=== PATIENT | female | born 1995 | race Caucasian/White ===

== ENCOUNTER 2017-10-07 08:40 | Inpatient (IN) ==
[2017-10-07] MEDS ORDERED: ACETAMINOPHEN 500 MG TABLET PO PRN ×2 (09:08→20:52)
[2017-10-07] MEDS ORDERED: CARBOPROST 250 MCG/ML INJECTION IM PRN (09:08)
[2017-10-07] MEDS ORDERED: MAG-AL + SIM ORAL LIQUID 30ml PO PRN ×2 (09:08→20:52)
[2017-10-07] MEDS ORDERED: CALCIUM CARBONATE Chewable 500mg TABLET PO PRN ×2 (09:08→20:52)
[2017-10-07] MEDS ORDERED: METHYLERGONOVINE 0.2 MG/ML INJECTION IM PRN (09:08)
[2017-10-07] MEDS ORDERED: LR 1,000 ML IV PRN (09:08)
[2017-10-07] MEDS ORDERED: LIDOCAINE 1% (10mg/ml) 2mL INJ PF SDV ID PRN (09:08)
[2017-10-07 09:50] VITALS: BMI 30.4
--- OUTSIDE RECORDS SUMMARY | 2017-10-07 10:02 | External Medical Summary | Continuity of Care Document ---
:1995 Author Organization [facility] Address [address] [place], [place] [id number] Phone Care Team Providers Name Role Phone TecRalf sears DO Unavailable Unavailable Allergies, Adverse Reactions, Alerts Substance Reaction Severity Status human papillomavirus vaccine, quadrivalent MigraineVisual disturbance Unknown Active Medications Medication Instructions Dosage Effective Dates Status Comments (start - stop) 27 mg-0.8 take 1 tablet by Not Available - Active mg tablet oral route every day Problems Condition Effective Dates (start - stop) Clinical Status Follow-Up, Routine - Encounter for suprvsn of normal - , first trimester 8 weeks gestation of - Active GERD Active Migraines Active Procedures Procedure Date Initial OB Visit No 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 OB Panel With An HIV Venpnctr fngr/heel/ear stick routne Infct antign, chlamydia trac, ampl Neisseria Gonorrhoeae, Amplification Cult, bactr, ident isolate, urine Results Test Name Date and Time Measure Units Reference Range Abnormal Flag Comments Panel Description: OBSTETRIC PANEL WHITE BLOOD CELL 7.5 Thousand/uL 3.8-10.8 N COUNT 11:12:00 RED BLOOD CELL 4.65 Million/uL 3.80-5.10 N COUNT 11:12:00 HEMOGLOBIN 14.7 g/dL 11.7-15.5 N 11:12:00 HEMATOCRIT 42.1 % 35.0-45.0 N 11:12:00 MCV 90.5 fL 80.0-100.0 N 11:12:00 MCH 31.6 pg 27.0-33.0 N 11:12:00 MCHC 34.9 g/dL 32.0-36.0 N 11:12:00 RDW 12.3 % 11.0-15.0 N 11:12:00 PLATELET COUNT 167 Thousand/uL 140-400 N 11:12:00 MPV 12.5 fL 7.5-12.5 N 11:12:00 ABSOLUTE 5025 cells/uL 6083-9811 N NEUTROPHILS 11:12:00 ABSOLUTE 1905 cells/uL 850-3900 N LYMPHOCYTES 11:12:00 ABSOLUTE 458 cells/uL 200-950 N MONOCYTES 11:12:00 ABSOLUTE 83 cells/uL 15-500 N EOSINOPHILS 11:12:00 ABSOLUTE 30 cells/uL 0-200 N BASOPHILS 11:12:00 NEUTROPHILS 67 % N 11:12:00 LYMPHOCYTES 25.4 % N 11:12:00 MONOCYTES 6.1 % N 11:12:00 EOSINOPHILS 1.1 % N 11:12:00 BASOPHILS 0.4 % N 11:12:00 ANTIBODY SCREEN, NO ANTIBODIES N RBC W/REFL ID, 11:12:00 DETECTED Reference range TITER AND AG No antibodies detected This assay is a screening test for the detection of red blood cell antibodies. The test is not to be used for pretransfusion screening or for the medical management of an alloimmunized . ABO GROUP A 11:12:00 RH TYPE RH (D) 11:12:00 NEGATIVE RPR (DX) W/REFL NON-REACTIVE NON-REACTIV N TITER AND 11:12:00 E CONFIRMATORY TESTING HEPATITIS B NON-REACTIVE NON-REACTIV N SURFACE ANTIGEN 11:12:00 E RUBELLA ANTIBODY 19.90 index N Index (IGG) 11:12:00 Interpretation ----- <0.90 Not consistent with Immunity 0.90-0.99 Equivocal > or=1.00 Consistent with Immunity The presence of rubella IgG antibody suggests immunization or past or current infection withrubella virus.Test performed at [facility] [id number] [facility] [place] [address]Gkfjbmr r: ANTON SANDRA DO,MPH Panel Description: HIV 1/2 ANTIGEN/ANTIBODY,FOURTH GENERATION W/RFL HIV NON-REACTIVE NON-REACTIVE N HIV-1 antigen and HIV-1/HIV- 2 antibodies were AG/AB, 11:12:00 notdetected. There is no laboratory evidence of 4TH GEN HIVinfection. PLEASE NOTE: This information has been disclosed toyou from records whose confidentiality may beprotected by state law. If your state requires suchprotection, then the state law prohibits you frommaking any further disclosure of the informationwithout the specific written consent of the personto whom it pertains, or as otherwise permitted by law.A general authorization for the release of medical orother information is NOT sufficient for this purpose. For additional information please refer tohttp://education.Bugcrowd/faq/SDF297(This link is being provided for informational/educational purposes only.) The performance of this assay has not been clinicallyvalidated in patients less than 2 years old. REPORT COMMENT:FASTING:NOTest performed at [facility] [id number] [place] [address]Owzhzqwa: ANTON SANDRA DO,MPH Panel Description: Bacteria identified in Urine by Culture CULTURE, URINE, SEE NOTE CULTURE, URINE, ROUTINE MICRO ROUTINE 11:15:00 NUMBER: [id number] TEST STATUS: FINAL SPECIMEN SOURCE: URINE, CLEAN CATCH SPECIMEN QUALITY: ADEQUATE RESULT: Multiple organisms present, each less than 10,000 CFU/mL. These organisms, commonly found on external and internal genitalia, are considered to be colonizers. No further testing performed.REPORT COMMENT:RFASTING:UNKNOWNTest performed at [facility] [id number] [place] [address]Jvohpzct: ANTON SANDRA DO,MPH Panel Description: CHLAMYDIA/N. GONORRHOEAE RNA, TMA CHLAMYDIA NOT DETECTED NOT DETECTED N TRACHOMATIS RNA, 11:13:00 TMA NEISSERIA NOT DETECTED NOT DETECTED N GONORRHOEAE RNA, 11:13:00 TMA [id number] SEE NOTE This test was 11:13:00 performed using the APTIMA COMBO2 Assay([employer] The analytical performance characteristics of this assay, when used to test SurePath specimens havebeen determined by [employer]. REPORT COMMENT:FASTING:UNKNO WNTest performed at [facility] [id number] [place] [address]Qacgsfph: ANTON SANDRA DO,MPH Panel Description: Pap Smear With HPV Reflex If ASCUS Document Pap Smear 10:15:00 See scanned report Advance Directives Directive Yes / No Effective Date File Name Unknown Encounters Encounter Practice Location Reason(s) Diagnoses Date Provider Care Team Description For Visit Members Kaleb Frias Encounter [facility] In Women for suprvsn -2016 [facility]ina. [facility] KANDICE, of normal [address], , [place], [place], first Center , [id number], trimester8 [place] 120, weeks [place], tel:[phone] [place], [id number], [place]. tel:[phone] Kaleb Frias Luis In Women Follow-Up, -2015 Kate. [facility] KANDICE, Routine [address], [facility] [place] [place], [place] [id number], [address] 120, [place], tel:[phone] [place], [id number], [place]. tel:[phone] Kaleb Frias Rafael Referring In Womens -2015 Sakina. Provider: Jeffery WOODSON [address], [place], [place] [facility] [id number], [address] [address], [address] [place], [place] 120, tel:[phone] [place], [id number], [id number]. [place]. tel:[phone] tel:[phone] Kaleb Frias Rafael In Womens -2015 [facility], [address], [place], [place], [place] , [id number], [place] 120, [place], tel:[phone] [place], [phone], [place]. tel:[phone] Family History Family Member Diagnosis Age At Onset Sister Kidney Disease Immunizations Vaccine Date Status Comments Rhophylac completed Source: New Immunization Record Payers Payer name Insurance type Covered green party ID Authorization(s) [employer] CI [id number] [facility] [id number] Medicaid [facility] CI [id number] [facility] [id number] Medicaid Social History Type Description Quantity Date Captured Alcohol Use Details No Caffeine Use Details soda Tobacco Use Status Never smoked tobacco Smoking Status Never smoker Non-Smoking Tobacco Use : No Details Available : No Details Available Details Vital Signs Date / Height Weight BMI Pulse Blood Temperature Respiratory Body Head BMI Time: Rate Pressure Rate Surface Circumference percentile Area 123.90 24.2 116/79 2017 lbs 0 mm[Hg] 10:33 kg/m AM eter (2) Chief Complaint And Reason For Visit Unknown Chief Complaint And Reason For Visit Reason For Referral Reason For Referral Unknown Plan Of Care Date Type Action Status Goal Lifestyle education regarding diet completed Goal Tobacco cessation counseling completed Appointment Ralf Gross BOOKED Date Type Problem Goal Intervention Status Start Date Unknown. History Of Present Illness Encounter Date Complaint History Of Present Illness This patient has no known history of present illness Functional Status Encounter Date Functional Assessment Cognitive Assessment Unknown Medications Administered Medication Instructions Dosage Effective Dates (start - stop) Status Comments Drug Treatment Unknown Instructions Date Instruction Additional Information HIV and other routine tests risk factors identified by history anticipated course of care nutrition and weight gain counseling, special diet toxoplasmosis precautions (cats / raw meat) sexual activity exercise indications for ultrasound influenza vaccine environmental / work hazards travel use of any medications (including supplements, vitamins, herbs, OTC drugs) domestic violence seat belt use childbirth classes / hospital facilities hospital registration genetic testing new ob handbook Zika virus assessment & precautions Giving encouragement to exercise Related to Body mass index 34.0-34.9 Lifestyle education regarding diet Related to Body mass index 34.0-34.9
--- OUTSIDE RECORDS SUMMARY | 2017-10-07 10:02 | External Medical Summary | Continuity of Care Document ---
:1995 Author Organization [facility] Address [address] [place], [place] [id number] Phone Care Team Providers Name Role Phone Ralf Grimes DO Unavailable Unavailable Allergies, Adverse Reactions, Alerts Substance Reaction Severity Status human papillomavirus vaccine, quadrivalent MigraineVisual disturbance Unknown Active Medications Medication Instructions Dosage Effective Dates Status Comments (start - stop) Rhophylac 1,500 - Active unit (300 mcg)/2 mL injection syringe 27 mg-0.8 take 1 tablet by Not Available - Active mg tablet oral route every day Problems Condition Effective Dates (start - stop) Clinical Status Follow-Up, Routine - Encounter for suprvsn of normal - , third trimester 36 weeks gestation of - Encounter for suprvsn of normal - , second trimester 24 weeks gestation of - Matern care for oth or susp poor fetl - grth, third tri, unsp Encounter for suprvsn of normal - , third trimester 29 weeks gestation of - Matern care for oth or susp poor fetl - grth, third tri, unsp 32 weeks gestation of - Matern care for oth or susp poor fetl - grth, third tri, unsp Encounter for suprvsn of normal - , third trimester 31 weeks gestation of - Encounter for suprvsn of normal - , first trimester 8 weeks gestation of - Encounter for suprvsn of normal - , first trimester 12 weeks gestation of - Encounter for suprvsn of normal - , second trimester 16 weeks gestation of - Encounter for suprvsn of normal - , second trimester 19 weeks gestation of - Encounter for suprvsn of normal - , second trimester 19 weeks gestation of - Encounter for suprvsn of normal - , third trimester 32 weeks gestation of - Encounter for suprvsn of normal - , third trimester 35 weeks gestation of - Encounter for suprvsn of normal - , third trimester 38 weeks gestation of - Encounter for suprvsn of normal - , third trimester 37 weeks gestation of - Active GERD Active Migraines Active Procedures Procedure Date OB Visit No Charge Cult, pathgnc orgnsm, screen Results Test Name Date and Time Measure Units Reference Range Abnormal Flag Comments Panel Description: Strep Gp B Culture Strep Gp B Negative Negative Centers for Disease Control Culture 17:05:00 and Prevention (CDC) and [place] Congressof Obstetricians and Gynecologists (ACOG) guidelines for prevention ofperinatal group B streptococcal (GBS) disease specify co-collection ofa vaginal and rectal swab specimen to maximize sensitivity of GBSdetection. Per the CDC and ACOG, swabbing both the lower vagina andrectum substantially increases the yield of detection compared withsampling the vagina alone. .Penicillin G, ampicillin, or cefazolin are indicated for intrapartumprophylaxis of GBS colonization. Reflex susceptibilitytesting should be performed prior to use of clindamycin only on GBSisolates from penicillin-allergic women who are considered a high riskfor anaphylaxis. Treatment with vancomycin without additional testingis warranted if resistance to clindamycin is noted. Advance Directives Directive Yes / No Effective Date File Name Unknown Encounters Encounter Practice Location Reason(s) Diagnoses Date Provider Care Team Description For Visit Members [facility] Encounter for Rafael Referring In Womens suprvsn of 7-201 Sakina. Provider: Health KANDICE, normal 8 [address], , Medical [place], third Center 700 [id number], [email or web address] , [facility] [place] weeks 120, Center tel:+ gestation of [place], [facility] 120, [address] [place], [id number] [place], , [place]. [id number]. tel: tel:[phone] Frias Encounter for Saul-2 Rafael Referring In Womens suprvsn of 0-201 Sakina. Provider: Health KANDICE, normal 8 700 Sakina [address], , Medical [place], third Center 700 [id number], [email or web address] , [facility] [place] weeks 120, Center tel:+ gestation of Rodriguez [facility] 120, [address] [place], [id number] [place], , [place]. [id number]. tel: tel:[phone] Frias Encounter for Saul-1 Rafael Referring In Womens suprvsn of 3-201 Sakina. Provider: Health KANDICE, normal 8 700 Sakina [address], , Medical [place], third Center 700 [id number], [email or web address] [facility] [place] weeks 120, Center tel:+ gestation of Rodriguez [facility] 120, [address] [place], [id number] [place], , [place]. [id number]. tel: tel:[phone] Frias Encounter for Saul-0 Rafael Referring In Womens suprvsn of 6-201 Sakina. Provider: Health KANDICE, normal 8 700 Sakina [address], , Medical [place], third Center 700 [id number], [facility] [place] weeks 120, Center tel:+ gestation of [place], [facility] 120, [address] [place], [id number] [place], , [place]. [id number]. tel: tel:[phone] Frias Encounter for May-2 Rafael Referring In Womens suprvsn of 1-201 Sakina. Provider: Jeffery WOODSON, normal 8 700 Sakina [address], , Medical Rafael L, [place], [place], third Center 700 [id number], [email or web address] , [facility] weeks 120, Center tel:21 gestation of [place], [place], [address] [place], [place], [id number] [place], , [place]. [id number]. tel: tel:[phone] [facility] [place] Matern care May-2 Rafael Referring In Womens Ultrasound for oth or 1-201 Sakina. Provider: Jeffery WOODSON, susp poor fetl 8 700 Sakina [address], gr, [facility] Medical Rafael L, [place], [place], tri, unsp32 Center 700 [id number], weeks , [facility] gestation of 120, Center tel: [place], [place], [address] [place], [place], [id number] [place], , [place]. [id number]. tel: tel: [phone] Kaleb Frias Matern care May-0 Rafael Referring In Womens for oth or 9-201 Sakina. Provider: Jeffery WOODSON, susp poor fetl 8 700 Sakina [address], grth, [facility] Medical Rafael , [place], [place], tri, Center 700 [id number], [email or web address] Medeiros, [facility] for suprvsn of 120, Center tel: normal [place], [place], [address] , [place], third [id number] [place], [email or web address] , [place]. [id number]. weeks tel: tel:[phone] gestation of [phone] [facility] [place] Matern care Apr-2 Rafael Referring In Womens for oth or 5-201 Sakina. Provider: Jeffery WOODSON, susp poor fetl 8 700 Sakina [address], grth, third Medical Rafael L, [place], [place], tri, Center 700 [id number], [email or web address] , [facility] for suprvsn of 120, Center tel: normal Frias, [place] 120, [address] , [place], third [id number] [place], [email or web address] , [place]. [id number]. weeks tel: tel: gestation of [phone] [facility] [place] Encounter for Mar-2 Rafael Referring In Womens suprvsn of 6-201 Sakina. Provider: Jeffery WOODSON, normal 8 [address] Sakina [address], , Medical RafaelKoko Ramirez [place], second Center 700 [id number], [place] [place] weeks 120, Center tel: gestation of [place], [place], [address] [place], [id number] [place], , [place]. [id number]. tel: tel:[phone] [facility] [place] Encounter for Feb-1 Rafael Referring In Womens suprvsn of 9-201 Sakina. Provider: Jeffery WOODSON normal 8 700 Sakina [address], , Medical [place], second Center 700 [id number], [email or web address] Sh[place] [facility] [place] weeks 120, Center tel: gestation of [place], [place], [address] [place], [id number] [place], , [place]. [id number]. tel: tel:+ [phone] [facility] [place] Encounter for Feb-1 Rafael Referring In Womens Ultrasound suprvsn of 9-201 Sakina. Provider: Jeffery WOODSON, normal 8 700 Sakina [address], , Medical [place], second Center 700 [id number], Sh[place] [facility] [place] weeks 120, Center tel: gestation of [place], [place], [address] [place], [id number] [place], , [place]. [id number]. tel: tel:[phone] [facility] [place] Encounter for Hemanth-2 Rafael Referring In Womens suprvsn of 6-201 Sakina. Provider: Jeffery WOODSON, normal 8 [address] Sakina [address], , Medical [place], second Center 700 [id number], [email or web address] , [facility] [place] weeks 120, Center tel: gestation of [place], [facility] 120, [address] [place], [place], [id number] [place], , [place]. [id number]. tel: tel: [phone] [facility] [place] Encounter for Dec-2 Rafael In Womens suprvsn of 8-201 Sakina. Health PA, normal 7 [address], , [place], [place], first Center , [email or web address] , [facility] US weeks 120, tel:21 gestation of [place], [address] [place], [id number] , [place]. tel: [phone] [facility] [place] Encounter for Nov-2 Rafael In Womens suprvsn of 8-201 Sakina. Health [place], normal 7 [address], , [place], [place], first Center , trimester8 , [facility] [place] weeks 120, tel:21 gestation of [place], [address] [place], [id number] , [place]. tel: [phone] [facility] [place] Aug-2 Luis In Womens Follow-Up, Kate. Health PA, Routine 6 [address], [place], [place], [place] [id number], , [facility] [place] 120, tel: [place], [address] [place], [id number] , [place]. tel: [phone] Kaleb Frias Apr-2 Rafael Referring In Womens 5-201 Sakina. Provider: Health PA, 6 700 Sakina [address], Medical Rafael L, [place], [place], Center 700 [id number], [facility] [place] 120, [place] tel:+21 [place], [facility] 120, [address] [place], [place], [id number] [place], , [place]. [id number]. tel: tel: [phone] [facility] [place] Hemanth-2 Rafael In Womens 7-201 Sakina. Health PA, 6 [address], [place], [place], Center [id number], [place] Medeiros [place] 120, tel:[phone] [place], [address] [place], [id number] , [place]. tel: [phone] Family History Family Member Diagnosis Age At Onset Sister Kidney Disease Immunizations Vaccine Date Status Comments Rhophylac completed Source: New Immunization Record Rhophylac completed Source: New Immunization Record Payers Payer name Insurance type Covered green party ID Authorization(s) [employer] [place] BL [id number] [employer] CI [id number] [facility] [id number] Medicaid BC [place] BL [id number] [facility] CI [id number] [facility] [id number] Medicaid Social History Type Description Quantity Date Captured Alcohol Use Details No Caffeine Use Details Unknown Tobacco Use Status Unknown Smoking Status Never smoker Vital Signs Date / Height Weight BMI Pulse Blood Temperature Respiratory Body Head BMI Time: Rate Pressure Rate Surface Circumference percentile Area 152.40 29.7 128/83 2018 lbs 6 mm[Hg] 5:04 kg/m PM eter (2) Chief Complaint And Reason For Visit Unknown Chief Complaint And Reason For Visit Reason For Referral Reason For Referral Unknown Plan Of Care Date Type Action Status Goal Lifestyle education regarding completed diet Goal Tobacco cessation counseling completed Appointment Ralf Gross BOOKED Future Order: Radiology Order Ultrasound OB Follow-up ([id number]) Ordered Future Order: Radiology Order Complete OB Ultrasound > 14 Ordered Weeks ([id number]) Date Type Problem Goal Intervention Status Start [...]
--- OUTSIDE RECORDS SUMMARY | 2017-10-07 10:02 | External Medical Summary | Continuity of Care Document ---
:1995 Author Organization [facility] Address [address] [place], [place] [id number] Phone Care Team Providers Name Role Phone Ralf Grimes DO Unavailable Unavailable Allergies, Adverse Reactions, Alerts Substance Reaction Severity Status human papillomavirus vaccine, quadrivalent MigraineVisual disturbance Unknown Active Medications Medication Instructions Dosage Effective Dates Status Comments (start - stop) Rhophylac 1,500 - Active unit (300 mcg)/2 mL injection syringe Zofran 4 mg tablet take 1 tablet by 4 MG - Active ORAL route every 8 hours as needed for nausea 27 mg-0.8 take 1 tablet by Not Available - Active mg tablet oral route every day Problems Condition Effective Dates (start - stop) Clinical Status Follow-Up, Routine - Encounter for suprvsn of normal - , second trimester 24 weeks gestation of - Encounter for suprvsn [...] second trimester 19 weeks gestation of - Active GERD Active Migraines Active Procedures Procedure Date OB Visit No Charge Injection Administration Rhophylac 100 Units RBC antibody screen, each Glucose test Hemoglobin count, colorimetric Hematocrit blood count Venpnctr fngr/heel/ear stick routne Results Test Name Date and Time Measure Units Reference Range Abnormal Flag Comments Panel Description: Glucose [Mass/volume] in Serum or Plasma --1 hour post 50 g glucose PO Gestational Diabetes 104 mg/dL 65-139 According to ADA, a glucose Screen 16:32:00 threshold of >139 mg/dL after 50-gramload identifies approximately 80% of women with gestationaldiabetes mellitus, while the sensitivity is further increased toapproximately 90% by a threshold of >129 mg/dL. Panel Description: Hemoglobin [Mass/volume] in Blood Hemoglobin 16:32:00 12.4 g/dL 11.1-15.9 Panel Description: Hematocrit [Volume Fraction] of Blood by Automated count Hematocrit 16:32:00 37.1 % 34.0-46.6 Panel Description: Blood group antibody screen [Presence] in Serum or Plasma Antibody Screen 16:32:00 Negative Negative Advance Directives Directive Yes / No Effective Date File Name Unknown Encounters Encounter Practice Location Reason(s) Diagnoses Date Provider Care Team Description For Visit Members Kaleb Frias Encounter Rafael Referring In Womens for Sakina. Provider: Health PA, of normal 700 Sakina [address], , [place], [facility] 700 [id number], [email or web address] Shade Medeiros [facility] weeks 120, Rives tel:21 gestation of Shade Frias 120, [address] Rodriguez [place], [id number] [place], , [place]. [id number]. tel: tel: [phone] Kaleb Frias Encounter Rafael Referring In Womens for Sakina. Provider: Health KANDICE, of normal 700 Sakina [address], , Medical [place]oko Enriquez [place], [facility] Center 700 [id number], [email or web address] Shade Medeiros [facility] weeks 120, Center tel: gestation of Rodriguez, [facility] 120, [address] [place]AN, [place], [id number] [place], , [place]. [id number]. tel: tel: [phone] Kaleb Frias Encounter Rafael Referring In Womens Ultrasound for vs Sakina. Provider: Health PA, of normal 700 Sakina [address], , Medical [facility] [place], [place], second Center 700 [id number], [email or web address] , [facility] [place] weeks 120, Center tel: gestation of Rodriguez, [facility] 120, [address] MOHAN, Frias, [id number] [place], , [place]. [id number]. tel: tel: [phone] Kaleb Frias Encounter Rafael Referring In Womens for vs Sakina. Provider: Health PA, of normal 700 Sakina [address], , Medical [place], second Center 700 [id number], [email or web address] , [facility] US weeks 120, Center tel: gestation of Rodriguez [facility] 120, [address] Rodriguez [place], [id number] [place], , [place]. [id number]. tel: tel: [phone] Kaleb Frias Encounter Rafael In Womens for Sakina. Health PA, of normal 700 [address], , [place], [place], first Center [id number], [email or web address] Dr Shade [place] weeks 120, tel: gestation of [place], [address] [place], [id number] , [place]. tel: [phone] Kaleb Frias Encounter Rafael In Womens for vs Sakina. Health PA, of normal 700 [address], , [place], first Center [id number], [email or web address] Dr Shade [place] weeks 120, tel:+21 gestation of [place], [address] [place], [id number] , [place]. tel: [phone] Kaleb Frias Aug-29 Luis In Womens Follow-Up, Kate. Health KANDICE, Routine 700 [address], Medical [place], Center [id number], , [facility] 120, tel:21 [place] [address] [place], [id number] , [place]. tel: [phone] Kaleb Frias Rafael Referring In Women Sakina. Provider: Jeffery WOODSON 700 Sakina [address], Medical [place], [place] [id number], , [facility] 120, [address] Dr tel:+21 Rodriguez, [facility] 120, [address] [place], Frias, [id number] [place], , [place]. [id number]. tel: tel: [phone] [facility] Rafael In Women -2015 Sakina. Health KANDICE, 700 [address], [place], Rives [id number], , [facility] 120, tel:21 [place] [address] [place], [id number] , [place]. tel: [phone] Family History Family Member Diagnosis Age At Onset Sister Kidney Disease Immunizations Vaccine Date Status Comments Rhophylac completed Source: New Immunization Record Rhophylac completed Source: New Immunization Record Payers Payer name Insurance type Covered republican ID Authorization(s) [facility] [place] [id number] Medica CI [id number] [facility] [id number] Medicaid [facility] BL [id number] [facility] CI [id number] [facility] [id number] Medicaid Social History Type Description Quantity Date Captured Alcohol Use Details No Caffeine Use Details Unknown Tobacco Use Status Unknown Smoking Status Never smoker Vital Signs Date / Height Weight BMI Pulse Blood Temperature Respiratory Body Head BMI Time: Rate Pressure Rate Surface Circumference percentile Area 132.20 25.8 123/2018 lbs 2 mm[Hg] 3:54 kg/m PM eter (2) Chief Complaint And Reason For Visit Unknown Chief Complaint And Reason For Visit Reason For Referral Reason For Referral Unknown Plan Of Care Date Type Action Status Goal Lifestyle education regarding completed diet Goal Tobacco cessation counseling completed Appointment Ralf Gross BOOKED Appointment Ralf Gross BOOKED Appointment Ralf Gross BOOKED Future Order: Radiology Order Complete OB Ultrasound > 14 Ordered Weeks ([id number]) Date Type Problem Goal Intervention Status Start [...]
--- OUTSIDE RECORDS SUMMARY | 2017-10-07 10:02 | External Medical Summary | Continuity of Care Document ---
:1995 Author Organization [facility] Address [address] [place], [place] [id number] Phone Care Team Providers Name Role Phone [...] - stop) Clinical Status Follow-Up, Routine - Active GERD Active Migraines Active Procedures Procedure Date Unknown Results Test Name Date and Time Measure Units Reference Range Abnormal Flag Comments Unknown Advance Directives Directive Yes / No Effective Date File Name Unknown Encounters Encounter Practice Location Reason(s) Diagnoses Date Provider Care Team Description For Visit Members Kaleb Frias Rafael In Womens -2016 Sakina. Jeffery WOODSON, 700 [address], [place], Bobbi Medeiros, [id number], Shade 120, [place] Rodriguez, tel:[phone] [place], [phone], [place]. tel:[phone] Kaleb Frias Luis In Women Follow-Up, -2015 Kate. Health KANDICE, Routine 700 [address], [place], Bobbi Medeiros [id number], Shade 120, [place] Rodriguez, tel:[phone] [place], [phone], [place]. tel:[phone] Kaleb Frias Rafael Referring In Womens -2015 Sakina. Provider: Jeffery WOODSON 700 Sakina [address], [place], [place] Sanjuanita Medeiros Medical [id number], Shade 120, [address] Dr [place] Frias, Shade 120, tel:+[phone] [place], [id number], [id number]. [place]. tel:5 tel:[phone] Kaleb Frias Rafael In [facility] -2015 [place]. [facility] KANDICE, 700 [address], Medical [place], [place] , [id number], Sh[place] 120, [place] Rodriguez, tel:+[phone] [place]AN, [id number], [place]. tel:[phone] Family History Family Member Diagnosis Age At Onset Sister Kidney Disease Immunizations Vaccine Date Status Comments Rhophylac completed Source: New Immunization Record Payers Payer name Insurance type Covered libertarian ID Authorization(s) [facility] [id number] Medicaid [facility] [id number] [facility] [id number] Medicaid Social History Type Description Quantity Date Captured Unknown Vital Signs Date / Height Weight BMI Pulse Blood Temperature Respiratory Body Head BMI Time: Rate Pressure Rate Surface Circumference percentile Area Unknown Chief Complaint And Reason For Visit Unknown [...] Treatment Unknown Instructions Date Instruction Additional Information Giving encouragement to exercise Related to Body mass index 34.0- 34.9 Lifestyle education regarding diet Related to Body mass index 34.0-34.9
--- OUTSIDE RECORDS SUMMARY | 2017-10-07 10:03 | External Medical Summary | Continuity of Care Document ---
:1995 Author Organization [facility] Address [address] [place], [place] [id number] Phone Care Team Providers Name Role Phone [...] first trimester 12 weeks gestation of - Active GERD Active Migraines Active Procedures Procedure Date OB Visit No Charge Results Test Name Date and Time Measure Units Reference Range Abnormal Flag Comments Unknown Advance Directives Directive Yes / No Effective Date File Name Unknown Encounters Encounter Practice Location Reason(s) Diagnoses Date Provider Care Team Description For Visit Members [facility] Encounter Rafael Referring In [facility] for suprvsn -2017 Sakina. Provider: Jeffery WOODSON, of normal 700 Sakina [address], , [place] Sanjuanita Medeiros Medical [id number], [email or web address] Shade 120, Center Dr [place] gregg Frias, Shade 120, tel:[phone] gestation of [place], [place]AN Frias, [id number], [id number]. [place]. tel: tel:[phone] Kaleb Frias Encounter Rafael In Womens for Sakina. Health PA, of normal 700 [address], , [facility] first Center , [id number], [email or web address] Shade 120, [place] weeks Rodriguez, tel:+[phone] [place], [id number], [place]. tel:[phone] Kaleb Frias Encounter Rafael In Womens for Sakina. Health PA, of normal 700 [address], , [place], [place], first Center , [id number], [email or web address] Shade 120, [place] weeks Rodriguez, tel:+[phone] [place], [id number], [place]. tel:[phone] Kaleb Frias Luis In Womens Follow-Up, -2015 Kate. Jeffery WOODSON, Routine 700 [address], [facility] [place], Center , [id number], Shade 120, [place] Rodriguez, tel:+[phone] MOHAN, [id number], [place]. tel:[phone] Kaleb Frias Rafael Referring In Womens -2015 Sakina. Provider: Jeffery WOODSON, 700 Sakina [address], Medical [place], [address] [id number], Shade 120, Center Rodriguez, Shade 120, tel:+[phone] [place], [id number], [id number]. [place]. tel:2 tel:[phone] Kaleb Frias Rafael In Womens -2015 Sakina. Jeffery WOODSON, 700 [address], [facility] [place], [address] [id number], Shade 120, [place] Rodriguez, tel:+[phone] MOHAN, [id number], [place]. tel:[phone] Family History Family Member Diagnosis Age At Onset Sister Kidney Disease Immunizations Vaccine Date Status Comments Michel completed Source: New Immunization Record Payers Payer name Insurance type Covered libertarian ID Authorization(s) [employer] [place] [id number] Medica CI [id number] [facility] - [id number] Medicaid [facility] CI [id number] [facility] - [id number] Medicaid Social History Type Description Quantity Date Captured Alcohol Use Details No Caffeine Use Details Unknown Tobacco Use Status Unknown Smoking Status Never smoker Vital Signs Date / Height Weight BMI Pulse Blood Temperature Respiratory Body Head BMI Time: Rate Pressure Rate Surface Circumference percentile Area 121.00 23.6 120/2018 lbs 3 mm[Hg] 3:22 kg/m PM eter (2) Chief Complaint And Reason For Visit Unknown Chief Complaint And Reason For Visit Reason For Referral Reason For Referral Unknown Plan Of Care Date Type Action Status Goal Lifestyle education regarding diet completed Goal Tobacco cessation counseling completed Appointment Ralf Gross BOOKED Appointment Ralf Gross BOOKED Date Type Problem [...]
--- OUTSIDE RECORDS SUMMARY | 2017-10-07 10:03 | External Medical Summary | Continuity of Care Document ---
:1995 Author Organization [email or web address] Address [address] [place], [place] [id number] Phone Care Team Providers Name Role Phone [...] Procedures Procedure Date OB Visit No Charge - LEGISLATORS Results Test Name Date and Time Measure Units Reference Range Abnormal Flag Comments Unknown Advance Directives Directive Yes / No Effective Date File Name Unknown Encounters Encounter Practice Location Reason(s) Diagnoses Date Provider Care Team Description For Visit Members Kaleb Frias Encounter for Rafael Referring In Womens suprvsn of 0-201 Sakina. Provider: Jeffery WOODSON normal 8 700 Sakina [address], , [place], third Center 700 [id number], [email or web address] Shade Medeiros weeks 120, Center tel: gestation of [facility] 120, [address] Rodriguez [place] [id number] [place], , [place]. [id number]. tel: tel: [phone] Kaleb Frias Encounter for Rafael Referring In Womens suprvsn of 3-201 Sakina. Provider: Jeffery WOODSON normal 8 700 Sakina [address], , [place], third Center 700 [id number], [email or web address] Shade Medeiros [place] weeks 120, Center tel: gestation of [facility] 120, [address] Rodriguez [place] [id number] [place], , [place]. [id number]. tel: tel:[phone] Kaleb Frias Encounter for Saul-0 Rafael Referring In Womens suprvsn of 6-201 Sakina. Provider: Jeffery WOODSON normal 8 700 Sakina [address], , Medical Rafael L, [place], third Center 700 [id number], [email or web address] Dr [facility] weeks 120, Center tel:+ gestation of Frias [facility] 120, [address] Rodriguez [place], [id number] [place], , [place]. [id number]. tel: tel:[phone] Kaleb Frias Encounter for May-2 Rafael Referring In Womens suprvsn of 1-201 Sakina. Provider: Jeffery WOODSON normal 8 700 Sakina [address], , Medical Rafael L, [place], [facility] Center 700 [id number], [email or web address] Dr [facility] weeks 120, Center tel:+ gestation of Rodriguez [facility] 120, [address] Rodriguez [place], [id number] [place], , [place]. [id number]. tel: tel:[phone] Kaleb Frias Matern care May-2 Rafael Referring In Womens Ultrasound for oth or 1-201 Sakina. Provider: Jeffery WOODSON, haydee poor fetl 8 700 Sakina [address], grth, third Medical Rafael L, [place], [place], tri, unsp32 Center 700 [id number], weeks Dr [facility] gestation of 120, Center tel:+ Rodriguez [facility] 120, [address] MOHAN, [place], [id number] [place], , [place]. [id number]. tel: tel:[phone] Kaleb Frias Matern care May-0 Rafael Referring In Womens for oth or 9-201 Sakina. Provider: Jeffery OWODSON, susp poor fetl 8 700 Sakina [address], grth, third Medical Rafael , [place], [place], tri, Center 700 [id number], [email or web address] Dr [facility] for suprvsn of 120, Center tel:+ normal Frias, Shade 120, [address] , MOHAN, [place], third [id number] [place], [email or web address] , [place]. [id number]. weeks tel: tel: gestation of [phone] [facility] Matern care Apr-2 Rafael Referring In Womens for oth or 5-201 Sakina. Provider: haydee Infante fetl 8 700 Sakina [address], grth, third Medical Rafael Sj [place], tri, Center 700 [id number], unspEncounter , [facility] for suprvsn of 120, Center tel: normal Rodriguez, Shade 120, [address] , Rodriguez [place], third [id number] [place], [email or web address] , [place]. [id number]. weeks tel: tel: gestation of [phone] [facility] Encounter for Mar-2 Rafael Referring In Womens suprvsn of 6-201 Sakina. Provider: jeremy Infante 8 700 Sakina [address], , [place], second Center 700 [id number], [email or web address] , [facility] weeks 120, Center tel: gestation of Rodriguez Shade 120, [address] Rodriguez [place], [id number] [place], , [place]. [id number]. tel: tel:[phone] Kaleb Frias Encounter for Feb-1 Rafael Referring In Womens suprvsn of 9-201 Sakina. Provider: Jeffery WOODSON normal 8 700 Sakina [address], , [place], second Center 700 [id number], [email or web address] , [facility] [place] weeks 120, Center tel:+ gestation of Rodriguez Shade 120, [address] Rodriguez [place], [id number] [place]OHAN, , [place]. [id number]. tel: tel:[phone] Kaleb Frias Encounter for Feb-1 Rafael Referring In Womens Ultrasound suprvsn of 9-201 Sakina. Provider: Jeffery WOODSON normal 8 700 Sakina [address], , Medical Rafael L, [place], second Center 700 [id number], [email or web address] Dr [facility] US weeks 120, Center tel: gestation of Rodriguez, [facility] 120, [address] [place], Frias, [id number] [place], , [place]. [id number]. tel: tel:+ [phone] Kaleb Frias Encounter for Hemanth-2 Rafael Referring In Womens suprvsn of 6-201 Sakina. Provider: Health PA, normal 8 700 Sakina [address], , Medical Rafael LKoko [place], second Center 700 [id number], [email or web address] Dr [facility] US weeks 120, Center tel: gestation of Rodriguez, [facility] 120, [address] [place], Frias, [id number] [place], , [place]. [id number]. tel: tel:+ [phone] Kaleb Frisa Encounter for Dec-2 Rafael In Womens suprvsn of 8-201 Sakina. Health PA, normal 7 700 [address], , [place], first Center [id number], [email or web address] , [facility] US weeks 120, tel:+ gestation of [place], [address] [place], [id number] , [place]. tel: [phone] Kaleb Frias Encounter for Nov-2 Rafael In Womens suprvsn of 8-201 Sakina. Health PA, normal 7 700 [address], , [place], [place], first Center [id number], trimester8 Dr Shade [place] weeks 120, tel:+[phone] gestation of [place], [address] [place], [id number] , [place]. tel: [phone] Kaleb Frias Aug-2 Luis In Womens Follow-Up, 9-201 Kate. Health PA, Routine 6 700 [address], [place], [place], Center [id number], Shade Medeiros [place] 120, tel:+[phone] Fri[place], [address] [place], [id number] , [place]. tel: [phone] Kaleb Frias Apr-2 Rafael Referring In Womens 5-201 Sakina. Provider: Health PA, 6 700 Sakina [address], [place], [place] [id number], , [facility] 120, [place] tel:+[phone] Rodriguez Shade 120, [address] MOHAN, Frias, [id number] [place], , [place]. [id number]. tel: tel: [phone] Kaleb Frias Rafael In Womens 7- [place]. Health PA, 6 700 [address], Medical [place], [place] [id number], , [facility] 120, tel:21 Frias [address] [place], [id number] , [place]. tel: [phone] Family History Family Member Diagnosis Age At Onset Sister Kidney Disease Immunizations Vaccine Date Status Comments Rhophylac completed Source: New Immunization Record Rhophylac completed Source: New Immunization Record Payers Payer name Insurance type Covered libertarian ID Authorization(s) [facility] [id number] Medica CI [id number] [facility] [id number] Medicaid [facility] [id number] [facility] CI [id number] [facility] [id number] Medicaid Social History Type Description Quantity Date Captured Alcohol Use Details No Caffeine Use Details soda Tobacco Use Status Never smoked tobacco Smoking Status Never smoker Vital Signs Date [...] Future Order: Radiology Order Ultrasound OB Follow-up ([id number]) Ordered Future Order: Radiology Order Complete OB Ultrasound > 14 Ordered Weeks ([id number]) Date Type Problem Goal Intervention Status Start [...]
--- OUTSIDE RECORDS SUMMARY | 2017-10-07 10:03 | External Medical Summary | Continuity of Care Document ---
:1995 Author Organization [facility] Address [address] [place], [place] [id number] Phone Care Team Providers Name Role Phone [...] Kaleb Frias Encounter Rafael In Women for suprvs Sakina. Health PA, of normal 700 [address], , [facility] , [id number], [email or web address] Shade 120, [place] weeks Rodriguez, tel:[phone] gestation [place], [id number], [place]. tel:[phone] Kaleb Frias Encounter Rafael In Womens for suprvs Sakina. Health PA, of normal 700 [address], , [facility] , [id number], trimester8 Shade 120, [place] weeks Frias, tel:+[phone] [place], [id number], [place]. tel:[phone] Kaleb Frias Luis In Womens Follow-Up, -2015 Kate. Health PA, Routine 700 [address], Medical [place], [place] , [id number], Shade 120, [place] Rodriguez, tel:+47923 MOHAN, [id number], [place]. tel:[phone] Kaleb Frias Rafael Referring In Womens -2015 Sakina. Provider: Health KANDICE 700 Sakina [address], Medical [place]oko Enri[place], [place] , Sanjuanita Medical [id number], Shade 120, Center Rodriguez, Shade 120, tel:[phone] [place], [id number], [id number]. [place]. tel:+ tel:[phone] Kaleb Frias Rafael In Womens -2015 Sakina. Health KANDICE, 700 [address], [place], [place] , [id number], Shade 120, [place] Rodriguez, tel:+[phone] [place], [id number], [place]. tel:[phone] Family History Family Member Diagnosis Age At Onset Sister Kidney Disease Immunizations Vaccine Date Status Comments Rhophylac completed Source: New Immunization Record Payers Payer name Insurance type Covered constitution party ID Authorization(s) [employer] CI [id number] [facility] [id number] Medicaid [facility] CI [id number] [facility] [id number] Medicaid Social History Type Description Quantity Date Captured Alcohol Use Details No Caffeine Use Details Unknown Tobacco Use Status Unknown Smoking Status Never smoker Vital Signs Date / Height Weight BMI Pulse Blood Temperature Respiratory Body Head BMI Time: Rate Pressure Rate Surface Circumference percentile Area 24.2 -2016 0 3:30 kg/m PM eter (2) 118.10 23.0 118/77 -2017 lbs 6 mm[Hg] 3:39 kg/m PM eter (2) Chief Complaint And [...]
--- OUTSIDE RECORDS SUMMARY | 2017-10-07 10:03 | External Medical Summary | Continuity of Care Document ---
:1995 Author Organization [facility] Address [address] [place], [place] [id number] Phone Care Team Providers Name Role Phone [...] - stop) Clinical Status Follow-Up, Routine - Matern care for oth or susp poor fetl - grth, third tri, unsp Encounter for suprvsn of normal - , third trimester 29 weeks gestation of - Encounter for suprvsn [...] Team Description For Visit Members [facility] Matern care July-0 Rafael Referring In Womens for oth or 9-201 Sakina. Provider: haydee Infante poor fetl 8 700 Sakina [address], [facility] Medical [facility], [place], [facility], Center 700 [id number], unspEncounter [facility] for suprvsn of 120, [place] tel:+21 normal [place], [facility] 120, [address] , [place], [facility] [id number] [place], [email or web address] , [place]. [id number]. weeks tel:+05-01 tel:[phone] gestation of [phone] [facility] Matern [facility] Jun-2 Rafael Referring In Womens for oth or 5-201 Sakina. Provider: haydee Infante poor fetl 8 700 Sakina [address], [facility], [facility] Medical [facility], [place], [facility], Center 700 [id number], unspEncounter [facility] for suprvsn of 120, Center tel:+21 normal [place], [facility] 120, [address] , [place], [place], third [id number] [place], [email or web address] , [place]. [id number]. weeks tel:+05-01 tel:[phone] gestation of [phone] [facility] Encounter for May-2 Rafael Referring In Womens suprvsn of 6-201 Sakina. Provider: jeremy Infante 8 700 Sakina [address], , Medical Rafael L, [place], [place], second Center 700 [id number], [email or web address] [facility] weeks 120, [place] tel:+21 [facility] [address] Rodriguez [place], [id number] [place], , [place]. [id number]. tel: tel:[phone] Kaleb [place] Encounter for Feb-1 Rafael Referring In Womens suprvsn of Sakina. Provider: Health KANDICE, normal 8 700 Sakina [address], , Medical Rafael L, [place], [place], second Center 700 [id number], [email or web address] Shade Medeiros [facility] [place] weeks 120, Center tel: gestation of [place], [facility] 120, [address] Rodriguez [place], [id number] [place], , [place]. [id number]. tel: tel:[phone] Kaleb Fri[place] Encounter for Feb-1 Rafael Referring In Womens Ultrasound suprvsn of Sakina. Provider: Health KANDICE, normal 8 700 Sakina [address], , Medical Rafael Sj, [place], [place], second Center 700 [id number], [email or web address] Dr [facility] US weeks 120, Center tel: gestation of [facility] 120, [address] Rodriguez [place], [id number] [place], , [place]. [id number]. tel: tel:[phone] Kaleb [place] Encounter for Hemanth-2 Rafael Referring In Womens suprvsn of Sakina. Provider: Health KANDICE, normal 8 700 Sakina [address], , Medical Rafael L, [place], second Center 700 [id number], [email or web address] Shade Medeiros [facility] US weeks 120, Center tel: gestation of [place], [facility] 120, [address] MOHAN [place], [id number] [place], , [place]. [id number]. tel: tel:[phone] Kaleb Fri[place] Encounter for Dec-2 Rafael In Womens suprvsn of Sakina. Health KANDICE, normal 7 700 [address], , Medical [place], [place]OHAN, first Center [id number], [email or web address] Shade Medeiros [place] weeks 120, tel:+ gestation of [place], [address] [place], [id number] , [place]. tel: [phone] Kaleb Fri[place] Encounter for Nov-2 Rafael In Womens suprvsn of 8-201 Sakina. Health [place], normal 7 700 [address], , [place], first Center [id number], [id number] , [facility] weeks 120, tel:[phone] gestation of [place], [address] [place], [id number] , [place]. tel: [phone] Kaleb Fri[place] Aug-2 Luis In Womens Follow-Up, 9-201 Kate. Health KANDICE, Routine 6 700 [address], [place], Center [id number], , [facility] 120, tel:+[phone] Rodriguez [facility], [id number] , [place]. tel: [phone] Kaleb Fri[place] Apr-2 Rafael Referring In Womens 5-201 Sakina. Provider: Jeffery WOODSON, 6 700 Sakina [address], Medical [place], [place] [id number], , [facility] 120, [place] tel:+[phone] Rodriguez [place] [address], [address] [place], [place], [id number] [place], , [place]. [id number]. tel: tel: [phone] Kaleb Frias Hemanth-2 Rafael In Womens 7-201 Sakina. Health KANDICE, 6 700 [address], [place], [place] [id number], , [facility] 120, tel:+[phone] [place] [facility], [id number] , [place]. tel: [phone] Family History Family Member Diagnosis Age At Onset Sister Kidney Disease Immunizations Vaccine Date Status Comments [facility] completed Source: New Immunization Record Rhophyla completed Source: New Immunization Record Payers Payer name Insurance type Covered libertarian ID Authorization(s) [facility] [id number] Medica CI [id number] [facility] [id number] Medicaid [facility] [id number] [facility] CI [id number] [facility] [id number] Medicaid Social History Type Description Quantity Date [...] Complete OB Ultrasound > 14 Ordered Weeks (29079) Date Type Problem Goal Intervention Status Start [...]
--- OUTSIDE RECORDS SUMMARY | 2017-10-07 10:03 | External Medical Summary | Continuity of Care Document ---
:1995 Author Organization [facility] Address [address] [place], [place] [phone] Phone Care Team Providers Name Role Phone [...] for oth or susp poor fetl - gr, third tri, unsp Encounter for suprvsn of [...] tri, unsp 32 weeks gestation of - Encounter for [...] third trimester 32 weeks gestation of - Active GERD Active Migraines Active Procedures Procedure Date OB Visit No Charge - VOLLEYBALL REFEREE Results Test Name Date and Time Measure Units Reference Range Abnormal Flag Comments Unknown Advance Directives Directive Yes / No Effective Date File Name Unknown Encounters Encounter Practice Location Reason(s) Diagnoses Date Provider Care Team Description For Visit Members Kaleb Frias Encounter for Rafael Referring In Womens suprvsn of 1-201 Sakina. Provider: Jeffery WOODSON normal 8 700 Sakina [address], , [place], [facility] Center 700 [id number], [email or web address] [facility] weeks 120, [place] tel:21 gestation of [facility] 120, [address] Rodriguez [place], [id number] [place], , [place]. [id number]. tel: tel:[phone] Kaleb Frias Matern [facility] Rafael Referring In Womens Ultrasound for oth or 1-201 Sakina. Provider: haydee Infante poor fetl 8 700 Sakina [address], [place], third [place], tri, unsp32 Center 700 [id number], weeks Shade Medeiros gestation of 120, Center tel:+[phone] [place], [facility] 120, [address] [place], [id number] [place], , [place]. [id number]. tel: tel:[phone] Kaleb Frias Matern care Rafael Referring In Womens for oth or 9-201 Sakina. Provider: haydee Infante poor fetl 8 700 Sakina [address], grth, third [place], [facility], Center 700 [id number], unspEncounter , [facility] for suprvsn of 120, Center tel:+ normal Rodriguez, Shade 120, [address] , [place], Rodriguez, third [id number] [place], [email or web address] , [place]. [id number]. weeks tel: tel:+[phone] gestation of [phone] [facility] Matern care Apr-2 Rafael Referring In Womens for oth or 5-201 Sakina. Provider: haydee Infante [facility] fetl 8 700 Sakina [address], grth, [facility] Medical Rafael L, [place], [place], [facility], Center 700 [id number], unspEncounter , [facility] for suprvsn of 120, Center tel:+ normal Rodriguez, [place]ade 120, [address] , [place], [place], third [id number] [place], [email or web address] , [place]. [id number]. weeks tel: tel: gestation of [phone] [facility] Encounter for Mar-2 Rafael Referring In Womens suprvsn of 6-201 Sakina. Provider: Health KANDICE normal 8 700 Sakina [address], , Medical Rafael L, [place], [place], second Center 700 [id number], [facility] weeks 120, Center tel: gestation of Rodriguez [facility] 120, [address] MOHAN [place], [id number] [place], , [place]. [id number]. tel: tel:+ [phone] Kaleb Frias Encounter for Feb-1 Rafael Referring In Womens suprvsn of 9-201 Sakina. Provider: Health KANDICE, normal 8 700 Sakina [address], , Medical Rafael L, [place], [place], second Center 700 [id number], [email or web address] [facility] weeks 120, Center tel:+ gestation of Rodriguez [place] 120, [address] MOHAN [place], [id number] [place], , [place]. [id number]. tel: tel:[phone] Kaleb Frias Encounter for Feb-1 Rafael Referring In Womens Ultrasound suprvsn of Sakina. Provider: Health [place], normal 8 700 Sakina [address], , Medical [place], second Center 700 [id number], [email or web address] , [facility] US weeks 120, Center tel: gestation of Rodriguez, [place] 120, [address] MOHAN, Rodriguez, [id number] [place], , [place]. [id number]. tel: tel: [phone] Kaleb Frias Encounter for Hemanth-2 Rafael Referring In Womens suprvsn of 6 Sakina. Provider: Health PA, normal 8 700 Sakina [address], , Medical [place], second Center 700 [id number], [email or web address] , [facility] US weeks 120, Center tel: gestation of Rodriguez, [place] 120, [address] MOHAN, [place], [id number] [place], , [place]. [id number]. tel: tel: [phone] Kaleb Frias Encounter for Dec-2 Rafael In Womens suprvsn of Sakina. Health PA, normal 7 700 [address], , [place], first Center [id number], [email or web address] , [facility] US weeks 120, tel:+ gestation of Rodriguez, [address] [place], [id number] , [place]. tel: [phone] Kaleb Frias Encounter for Nov-2 Rafael In Womens suprvsn of 8 Sakina. Health PA, normal 7 700 [address], , [place], first Center [id number], [email or web address] , [facility] US weeks 120, tel:+ gestation of Rodriguez, [address] [place], [id number] , [place]. tel: [phone] Kaleb Frias Aug-2 Luis In Womens Follow-Up, Kate. Health PA, Routine 6 700 [address], [place], [place], Center [id number], , [facility] US 120, tel:+[phone] [place], [address] [place], [id number] , [place]. tel: [phone] Kaleb Frias Jun- Rafael Referring In Womens 5-201 Sakina. Provider: Health PA, 6 700 Sakina [address], Medical [place], Center 700 [id number], , [facility] 120, [place] [address] tel:21 [place], [facility] 120, [address] [place], [facility] [id number] [place], , [place]. [id number]. tel: tel: [phone] Kaleb Frias Apr- Rafael In Womens 7-201 Sakina. Health PA, 6 700 [address], Medical [place], [place] [id number], , [facility] 120, tel:21 [place] [address] [place], [id number] , [place]. tel: [phone] Family History Family Member Diagnosis Age At Onset Sister Kidney Disease Immunizations Vaccine Date Status Comments Rhophyla completed Source: New Immunization Record Rhophylac completed Source: New Immunization Record Payers Payer name Insurance type Covered democrat ID Authorization(s) [facility] [place] [id number] Medica CI [id number] [facility] [id number] Medicaid [facility] BL [id number] [facility] CI [id number] [facility] [id number] Medicaid Social History Type Description Quantity Date Captured Alcohol Use Details No Caffeine Use Details Unknown Tobacco Use Status Unknown Smoking Status Never smoker Vital Signs Date / Height Weight BMI Pulse Blood Temperature Respiratory Body Head BMI Time: Rate Pressure Rate Surface Circumference percentile Area 141.80 27.6 lbs 9 mm[Hg] 4:20 kg/m PM eter (2) Chief Complaint And Reason For Visit Unknown Chief Complaint And Reason For Visit Reason For Referral Reason For Referral Unknown Plan Of Care Date Type Action Status Goal Lifestyle education regarding completed diet Goal Tobacco cessation counseling completed Appointment Ralf Gross BOOKED Appointment Ralf Gross BOOKED Future Order: Radiology Order Ultrasound OB Follow-up ([id number]) Ordered Future Order: Radiology Order Complete OB Ultrasound > 14 Ordered Weeks ([id number]) Date Type Problem Goal Intervention Status Start [...]
--- OUTSIDE RECORDS SUMMARY | 2017-10-07 10:03 | External Medical Summary | Continuity of Care Document ---
:1995 Author Organization [facility] Address [address] [place], [place] [id number] Phone Care Team Providers Name Role Phone Ralf Grimes DO Unavailable Unavailable Allergies, Adverse Reactions, Alerts Substance Reaction Severity Status human papillomavirus vaccine, quadrivalent MigraineVisual disturbance Unknown Active Medications Medication Instructions Dosage Effective Dates Status Comments (start - stop) Zofran 4 mg tablet take 1 tablet [...] second trimester 16 weeks gestation of - Active GERD Active Migraines Active Procedures Procedure Date Ultrasound exam of preg uterus, complete Results Test Name Date and Time Measure Units Reference Range Abnormal Flag Comments Unknown Advance Directives Directive Yes / No Effective Date File Name Unknown Encounters Encounter Practice Location Reason(s) Diagnoses Date Provider Care Team Description For Visit Members Kaleb Frias Encounter Rafael Referring In Womens for suprvsn -2017 Sakina. Provider: Health PA, of normal 700 Sakina [address], , Medical [place], second Center 700 [id number], [email or web address] , [facility] US weeks 120, [address] Dr tel: gestation of Rodriguez, [place] 120, [address] Rodriguez [place], [id number] [place], , [place]. [id number]. tel: tel:[phone] Kaleb Frias Encounter Rafael Referring In Womens Ultrasound for vsn Sakina. Provider: Health PA, of normal 700 Sakina [address], , Medical [place], second Center 700 [id number], [email or web address] , [facility] US weeks 120, Center Dr tel: gestation of Rodriguez, [place] 120, [address] MOHAN, [place], [id number] [place], , [place]. [id number]. tel: tel:[phone] Kaleb Frias Encounter Rafael Referring In Womens for suprvsn Sakina. Provider: Health PA, of normal 700 Sakina [address], , Medical [place], second Center 700 [id number], [email or web address] , [facility] US weeks 120, Center tel: gestation of Rodriguez, [place] 120, [address] Rodriguez [place], [id number] [place], , [place]. [id number]. tel: tel:+[phone] Kaleb Frias Encounter Rafael In Womens for suprvsn -2016 Sakina. Health PA, of normal 700 [address], , Medical MOHAN [place], first Center [id number], [email or web address] , [facility] US weeks 120, tel:+ gestation of Rodriguez, [address] [place], [id number] , [place]. tel: [phone] Kaleb Frias Encounter Rafael In Womens for suprvsn Sakina. Health PA, of normal 700 [address], , Medical MOHAN [place], first Center [id number], [email or web address] , [facility] weeks 120, tel:21 gestation of [place], [address] [place], [id number] , [place]. tel: [phone] Kaleb Frias Luis In Women Follow-Up, -2015 Kate. Health PA, Routine 700 [address], [place], [place], [place] [id number], , [facility] 120, tel:[address], [id number] , [place]. tel: [phone] Kaleb Frias [facility] Referring In Womens -2015 Sakina. Provider: Health KANDICE 700 Sakina [address], Medical Rafael [place], [place] [id number], , [facility] 120, [place] tel:+[address] [facility] 120, [address] [place], [place], [id number] [place], , [place]. [id number]. tel: tel: [phone] Kaleb Frias Rafael In Womens -2015 Sakina. Health KANDICE, 700 [address], [place], [place], [place] [id number], , [facility] 120, tel:21 [facility] [address], [id number] , [place]. tel: [phone] Family History Family Member Diagnosis Age At Onset Sister Kidney Disease Immunizations Vaccine Date Status Comments Rhophylac completed Source: New Immunization Record Payers Payer name Insurance type Covered libertarian ID Authorization(s) [facility] [id number] Medica CI [id number] [facility] [id number] Medicaid [facility] CI [id number] [facility] [id number] Medicaid Social History Type Description Quantity Date [...] diet Goal Tobacco cessation counseling completed Appointment RenatoRalf madrigal BOOKED Future Order: Radiology Order Complete OB Ultrasound > 14 Ordered Weeks ([id number]) Date Type Problem Goal Intervention Status Start [...]
[2017-10-07] MEDS ORDERED: D5LR 1,000 ML IV PRN (17:48)
[2017-10-07] MEDS ORDERED: OXYTOCIN DRIP 30 UNIT/500 ML ML IV PRN (17:48)
[2017-10-07] MEDS ORDERED: DiphenhydrAMINE 25 MG CAPSULE PO PRN (20:52)
[2017-10-07] MEDS ORDERED: HYDROCORTISONE 2.5% CREAM 30gm RECTALLY PRN (20:52)
[2017-10-07] MEDS ORDERED: RHOPHYLAC - PHARMACY CONSULT MC ONE ×2 (20:52)
[2017-10-07] MEDS ORDERED: HYDROCODONE/APAP 5mg/325mg TABLET PO PRN (20:52)
[2017-10-07] MEDS ORDERED: TRANEXAMIC ACID 1,000 MG in NS 100 ML IV ONE (21:19)
--- NOTE | 2017-10-08 08:15 | OB/GYN Progress Note ---
OB-PP Progress Note - General PPD1 Maternal Group B Strep: Negative Maternal Rh: negative Maternal Rubella Status: Immune - Subjective Date: 10/08/17 Lochia: Minimal Pain: controlled Voiding: voiding Nausea or Vomiting Present: No - Objective Vital Signs: Last Vital Signs Temp 98.1 F 10/08/17 00:55 Pulse 91 10/08/17 00:55 Resp 18 10/08/17 00:55 BP 124/65 10/08/17 00:55 Pulse Ox 99 10/08/17 00:55 General: alert and oriented Abdomen: fundus firm, non-tender Extremities: non-tender Edema: none Laboratory: Laboratory Results - last 24 hr 10/07/17 10/07/17 10/07/17 09:36 11:06 20:52 WBC 10.2 RBC 4.38 Hgb 13.4 Hct 40.2 MCV 91.8 MCH 30.6 MCHC 33.3 RDW Std Deviation 47.3 Plt Count 91 L MPV 13.3 H Turbidity < 20 Sodium 141 Potassium 4.2 Chloride 109 H Carbon Dioxide 25 Anion Gap 7 BUN 8.0 Creatinine 0.8 GFR Calculation 91 BUN/Creatinine Ratio 10 Glucose 76 Calculated Osmolality 268 Calcium 8.8 Total Bilirubin 0.50 Icterus Index < 2 AST 17 ALT 9 Alkaline Phosphatase 174 H Total Protein 6.6 Albumin 3.7 Globulin 2.9 Albumin/Globulin Ratio 1.3 Specimen Hemolysis < 15 RhIG Candidate? Not a candidate - Assessment Assessment: SHANTA PRUETT - Plan Plan: routine care, discharge home
[2017-10-08] MEDS: IBUPROFEN 800 MG TABLET PO SCH ×2 (08:46→09:45)
[2017-10-08] MEDS ORDERED: PRENATAL VITAMIN TABLET PO SCH (09:00)
[2017-10-08] MEDS ORDERED: DOCUSATE CALCIUM 240 MG CAPSULE PO SCH (09:00)
--- NOTE | 2017-10-08 09:07 | Pharmacy Consult ---
Pharmacy Consult-Rhophylac - Laboratory Information 10/07/17 20:52 RhIG Candidate? Not a candidate - Consult Information Rh FACTOR CONSULT: Mother Blood Type = A (-) negative Child Blood Type = O (-) negative Hgb / Adult Ratio = N/A NO Rho D Immunglobulin necessary. Thank you, Kirk Cooney, Pharmacist.
[2017-10-08 09:29] VITALS: RESP 16
--- NOTE | 2017-10-08 10:04 | Labor and Delivery Note ---
DATE OF DELIVERY 10/07/2017 Ms. Gross progressed well in first stage of labor. She began to push with excellent effort at the complete and +2 presentation. She pushed for a few minutes, delivering the head in the OA position. Baby was bulb suctioned on the perineum. There was a loose nuchal cord x1 that was reduced without difficulty. With a further push, the baby delivered in total and then was further bulb suctioned. Baby was placed on mother's abdomen. After almost three minutes the cord was doubly clamped. It was then cut by the baby's father , Neville, This is a liveborn female with Apgars of 8/9/9. The baby's weight has not yet been obtained as baby is still in skin to skin contact with mom. After a few minutes, the placenta delivered spontaneously, intact. It had a normal configuration and normal-appearing three-vessel cord. There was a superficial midline laceration which unfortunately was not hemostatic, so it was repaired with a simple ligature of 3-0 chromic. I offered the patient lidocaine but she preferred just to have the stitch and tolerated this very well. Bleeding was a bit brisk so we administered IM Methergine x1 and the bleeding has since improved. Total blood loss has been approximately 400 mL at this moment. At the time of this dictation, mother and baby are doing well. [facility]
[2017-10-08 13:57] VITALS: O2SAT 98
[2017-10-08 19:18] VITALS: BP 131/84; PULSE 81; TEMP 98.3
== END 2017-10-08 22:40 | disposition home or self-care (01) | DRG 775 ==
LOC: OBOBS 08:40 → MC 08:44
PROVIDERS: ADMIT Obstetrics & Gynecology; ATTEND Obstetrics & Gynecology